=== PATIENT | female | born 1970 | race Caucasian/White ===

== ENCOUNTER 2018-03-08 08:44 | Observation (INO) ==
[2018-03-08] MEDS ORDERED: Aspirin 81 MG TAB.CHEW PO ONE (08:55)
[2018-03-08] MEDS ORDERED: 0.9 % Sodium Chloride 500 ML IVC ONE (08:55)
--- NOTE | 2018-03-08 09:09 | Emergency Department Note ---
Disposition Clinical Impression: Chest pain Pericarditis Qualifiers: Pericarditis type: unspecified type Chronicity: unspecified Qualified Code(s): I31.9 - Disease of pericardium, unspecified Disposition: Admitted As Inpatient Condition: Good Referrals: Montez Tafoya [Primary Care Provider] - Forms: ED Satisfaction Letter Time of Disposition: 11:24 Chest Pain HPI - General Chief Complaint: ED Chest Pain Stated Complaint: CP/Fever/Nausea Time Seen by Provider: 03/08/18 08:55 Source: patient Mode of arrival: ambulatory Limitations: no limitations Vital Signs Reviewed: Yes Nursing Notes Reviewed: Yes - History of Present Illness HPI Narrative: 47-year-old female with history of chronic pericarditis presents for evaluation of chest pain. Patient states symptom onsets been over the past 48 hours. States symptom onset began 2 days ago. Described as nausea vomiting and chest pain. Notes pain is localized over the left side of her chest. Pain appears to be worse with palpation and leaning forward. States this is similar to her prior flareups of her pericarditis. Patient noted a fever last night of 101 Fahrenheit. Agents also had a cough and shortness of breath. Patient states that she developed pericarditis last year after an ablation at [facility] for PVCs. States that she is typically on ibuprofen, colchicine as well as 12.5 mg of prednisone daily. States that she has been followed at the [facility] routinely for her symptoms. Patient denies any abdominal pain. Denies any history of IV drug use. Severity scale (1-10): 8 - Related Data Previous Rx's Medication Instructions Recorded Guaifenesin/Dm/Pseudoephedrine 1 each PO BID #20 tablet 09/12/16 [Capmist Dm Tablet] Nitrofurantoin (BID) [Macrobid] 100 mg PO BID #10 capsule 09/12/16 Ondansetron HCl [Zofran] 4 mg PO QID #15 tablet 09/12/16 Oseltamivir [Tamiflu] 75 mg PO BID #10 capsule 09/12/16 Phenazopyridine HCl [Pyridium] 200 mg PO TIDAC #6 tab 09/12/16 Allergies Allergy/AdvReac Type Severity Reaction Status Date / Time latex Allergy Rash Verified 03/08/18 08:48 Sulfa (Sulfonamide AdvReac Rash Verified 03/08/18 08:48 Antibiotics) All systems ED: reviewed and negative except as stated. Constitutional: Reports: fever Cardiovascular: Reports: chest pain Respiratory: Reports: cough, dyspnea. Denies: sputum production Gastrointestinal: Reports: nausea, vomiting. Denies: abdominal pain, diarrhea Chest Pain PMH - Past Medical History Medical history: Reports: cancer, other Psychiatric history: Reports: no psych history - Social History Smoking Status: Never smoker Alcohol use: Reports: none Drug use: Reports: none Physical Exam - General Limitations: no limitations General appearance: alert, in no apparent distress - Head Head exam: atraumatic, normocephalic, normal inspection - Eye Eye exam: Present: normal appearance, PERRL, EOMI - ENT ENT exam: normal exam, normal oropharynx, mucous membranes moist - Neck Neck exam: Present: normal inspection, full ROM, trachea midline - Chest Chest inspection: Present: normal inspection, symmetric chest wall rise, tenderness (reproducibile). Absent: rash - Respiratory Respiratory exam: Present: normal lung sounds bilaterally, respiratory distress - Cardiovascular Cardiovascular exam: Present: regular rate, normal rhythm - Abdominal Exam Abdominal exam: Present: soft, Non-Tender - Extremities Exam Extremities exam: Present: normal inspection. Absent: pedal edema - Back Exam Back exam: Present: normal inspection - Neurological Exam Neurological exam: Present: alert, oriented X3, CN II-XII intact - Skin Skin exam: Present: warm, dry, intact, normal color Course Course Narrative: Patient seen and examined. Patient appears uncomfortable. Patient will get the basic cardiopulmonary screening evaluation. Patient's symptoms are consistent with her pericarditis in the past. Disposition pending. - Reevaluation(s) Reevaluation #1: Patient seen and examined. Bedside ultrasound does reveal trace pericardial fluid. No signs of tamponade on. Will attempt to contact the patient's contact center director at the [facility]. Patient is agreeable for admission here. Time: 10:14 Reevaluation #2: Attempting to get in touch with Dr. Weinstein, patient's doctor at the [facility] was unsuccessful. Awaiting callback from the [facility]. Until that point the patient will be admitted to the hospital service. Time: 11:04 Reevaluation #3: Patient seen and examined. Updated on plan of care. States that her pain has improved as long as she is not moving around. Awaiting callback from [facility]. Time: 11:49 Vital Signs Temperature 97.9 F 03/08/18 08:46 Pulse Rate 61 03/08/18 08:46 Respiratory Rate 18 03/08/18 08:46 Blood Pressure 145/91 03/08/18 08:46 O2 Sat by Pulse Oximetry 100 03/08/18 08:46 Temperature 97.9 F 03/08/18 08:58 Pulse Rate 61 03/08/18 08:58 Respiratory Rate 18 03/08/18 08:58 Blood Pressure 145/91 03/08/18 08:58 O2 Sat by Pulse Oximetry 100 03/08/18 08:58 Oxygen Delivery Oxygen Delivery Room Air Chest Pain - MDM Narrative Medical decision making narrative: Patient presents for evaluation of pericarditis. Some her to her prior flareups. Patient's on fairly maximal therapy at home. Patient had a bedside ultrasound which did reveal some pericardial fluid noted to Not. It appeared to be only a minor amount of fluid. Patient would benefit from observation as an inpatient with a formal echo and resolution of symptoms. Attempted to get a hold of [facility] and physician covering the patient's care but was unsuccessful down the ED. At this point the patient shows no evidence of tap not physiology. Patient's appropriate for observation resolution of symptoms. Patient was agreeable with admission to hospitalist. Patient's symptoms are not consistent with ACS or PE. - Lab Data Lab results reviewed: Yes I reviewed the patient's lab results. Result diagrams: 03/08/18 09:12 03/08/18 09:12 Lab Results 03/08/18 03/08/18 03/08/18 Range/Units 09:12 09:12 09:12 WBC 7.8 (4.3-11.1) K/mcL RBC 4.74 (3.82-4.97) M/mcL Hgb 14.2 (11.5-15.4) g/dL Hct 42.3 (35.3-44.9) % MCV 89.2 (83.0-100.0) fL MCH 30.0 (28.0-33.3) pg MCHC 33.6 (31.6-35.5) g/dL RDW 13.1 (11.5-14.5) % Plt Count 275 (140-400) K/mcL MPV 10.0 (9.4-12.4) fL Immature Gran % 0.6 (0-4) % Seg Neutrophils % 54.5 % Lymphocytes % 33.8 % Monocytes % 8.3 % Eosinophils % 2.4 % Basophils % 0.4 % Neutrophils # 4.2 (1.6-8.9) K/mcL Lymphocytes # 2.6 (0.6-4.6) K/mcL Monocytes # 0.7 (0.0-1.3) K/mcL Eosinophils # 0.2 (0.0-0.6) K/mcL Basophils # 0.0 (0.0-0.2) K/mcL PT 11.2 (9.4-12.1) Seconds INR 1.0 APTT 36.0 (26.0-36.0) Seconds Sodium (136-145) mEq/L Potassium (3.5-5.1) mEq/L Chloride (98-107) mEq/L Carbon Dioxide (23-29) mEq/L BUN (6-20) mg/dL Creatinine (0.60-1.20) mg/dL Est GFR ( Amer) (> 60) Est GFR (Non-Af Amer) (> 60) BUN/Creatinine Ratio (6-26) Glucose (70-105) mg/dL Calculated Osmolality (280-300) Calcium (8.6-10.3) mg/dL Troponin I (< 0.04) ng/mL B-Natriuretic Peptide 141 H (Less than 100) pg/mL Urine Test (Negative) 03/08/18 03/08/18 Range/Units 09:12 11:25 WBC (4.3-11.1) K/mcL RBC (3.82-4.97) M/mcL Hgb (11.5-15.4) g/dL Hct (35.3-44.9) % MCV (83.0-100.0) fL MCH (28.0-33.3) pg MCHC (31.6-35.5) g/dL RDW (11.5-14.5) % Plt Count (140-400) K/mcL MPV (9.4-12.4) fL Immature Gran % (0-4) % Seg Neutrophils % % Lymphocytes % % Monocytes % % Eosinophils % % Basophils % % Neutrophils # (1.6-8.9) K/mcL Lymphocytes # (0.6-4.6) K/mcL Monocytes # (0.0-1.3) K/mcL Eosinophils # (0.0-0.6) K/mcL Basophils # (0.0-0.2) K/mcL PT (9.4-12.1) Seconds INR APTT (26.0-36.0) Seconds Sodium 139 (136-145) mEq/L Potassium 3.5 (3.5-5.1) mEq/L Chloride 102 (98-107) mEq/L Carbon Dioxide 29 (23-29) mEq/L BUN 13 (6-20) mg/dL Creatinine 0.81 (0.60-1.20) mg/dL Est GFR ( Amer) > 60 (> 60) Est GFR (Non-Af Amer) > 60 (> 60) BUN/Creatinine Ratio 16 (6-26) Glucose 123 H (70-105) mg/dL Calculated Osmolality 289 (280-300) Calcium 9.1 (8.6-10.3) mg/dL Troponin I < 0.03 (< 0.04) ng/mL B-Natriuretic Peptide (Less than 100) pg/mL Urine Test Negative (Negative) - Radiology Data Radiology results reviewed: Yes I reviewed the patient's radiology results. Chest X-Ray 03/08/18 08:55 IMPRESSION: 1. No acute findings in the chest. 2. Mild cardiomegaly. D/ / Rodolfo Matias MD / Rodolfo Matias MD Interpreting Provider: Rodolfo Matias MD - EKG Data EKG attestation: Yes I reviewed and interpreted this EKG. EKG shows normal: sinus rhythm Rate: normal Rhythm: NSR Bowie/QRS: normal T wave inversions noted in: aVR, v1 Interpretation: no acute changes, unchanged when compared to prior tracing (date ), nonspecific ST-T wave changes S.B.A.R. - S.B.A.R. Situation: Demographics Background: Presenting Complaint Assessment: Vital Signs, Course and respsone to treatment, Patient/Family Expectation Recommendation: Barrier(s) to disposition, Recommendation based on pending studies, treatments, or consults S.B.A.R. Report Given to: Dr. Hao Rabago Repor Time: 11:24 Attestation Statement - Attestation Attestation: I, Michael Villar DO, examined this patient [id number] and my medical decision-making was reviewed with Dr. Marco Frye, Resident Physician. I agree with the documented findings, disposition and treatment plan as described except to the extent set forth below. Please see my progress notes for details.
[2018-03-08] MEDS ORDERED: *HR* FentaNYL (PF) 100 MCG/2 ML VIAL IVP ONE (09:11)
[2018-03-08 09:26] LABS: Basophils % 0.4 %; Eosinophils # 0.2 K/mcL (0.0-0.6); Eosinophils % 2.4 %; Hematocrit 42.3 % (35.3-44.9); Hemoglobin 14.2 g/dL (11.5-15.4); Immature Granulocytes % 0.6 % (0-4); Lymphocytes # 2.6 K/mcL (0.6-4.6); Lymphocytes % 33.8 %; Mean Corpuscular HGB Conc 33.6 g/dL (31.6-35.5); Mean Corpuscular Volume 89.2 fL (83.0-100.0); Monocytes # 0.7 K/mcL (0.0-1.3); Monocytes % 8.3 %; Neutrophils # 4.2 K/mcL (1.6-8.9); Platelet Count 275 K/mcL (140-400); Red Blood Count 4.74 M/mcL (3.82-4.97); Red Cell Distribution Width 13.1 % (11.5-14.5); Segmented Neutrophils % 54.5 %
[2018-03-08 09:35] LABS: Prothrombin Time 11.2 Seconds (9.4-12.1)
[2018-03-08 09:41] LABS: Troponin I < 0.03 ng/mL (< 0.04)
[2018-03-08 09:46] LABS: BUN/Creatinine Ratio 16 (6-26); Blood Urea Nitrogen 13 mg/dL (6-20); Calcium 9.1 mg/dL (8.6-10.3); Carbon Dioxide 29 mEq/L (23-29); Chloride 102 mEq/L (98-107); Glucose 123 mg/dL (70-105); Osmolality,Calculated 289 (280-300); Potassium 3.5 mEq/L (3.5-5.1); Sodium 139 mEq/L (136-145); eGFR For Non-African Americans > 60 (> 60)
[2018-03-08] MEDS ORDERED: Ketorolac 15 MG/ML VIAL IVP ONE (09:55)
--- NOTE | 2018-03-08 10:00 | Emergency Department Note ---
Disposition Clinical Impression: Chest pain Pericarditis Qualifiers: Pericarditis type: unspecified type Chronicity: unspecified Qualified Code(s): I31.9 - Disease of pericardium, unspecified Disposition: Admitted As Inpatient Condition: Good Referrals: Montez Tafoya [Primary Care Provider] - Forms: ED Satisfaction Letter Time of Disposition: 11:33 General Adult HPI - General Chief complaint: ED Chest Pain Stated complaint: CP/Fever/Nausea Time Seen by Provider: 03/08/18 08:55 Source: patient Mode of arrival: ambulatory Limitations: no limitations - History of Present Illness Pain Scale: 8 - Related Data Previous Rx's Medication Instructions Recorded Guaifenesin/Dm/Pseudoephedrine 1 each PO BID #20 tablet 09/12/16 [Capmist Dm Tablet] Nitrofurantoin (BID) [Macrobid] 100 mg PO BID #10 capsule 09/12/16 Ondansetron HCl [Zofran] 4 mg PO QID #15 tablet 09/12/16 Oseltamivir [Tamiflu] 75 mg PO BID #10 capsule 09/12/16 Phenazopyridine HCl [Pyridium] 200 mg PO TIDAC #6 tab 09/12/16 Allergies Allergy/AdvReac Type Severity Reaction Status Date / Time latex Allergy Rash Verified 03/08/18 08:48 Sulfa (Sulfonamide AdvReac Rash Verified 03/08/18 08:48 Antibiotics) Constitutional: Reports: fever Cardiovascular: Reports: chest pain Respiratory: Reports: cough, dyspnea. Denies: sputum production Gastrointestinal: Reports: nausea, vomiting. Denies: abdominal pain, diarrhea Past Medical History - Past Medical History Medical history: Reports: cancer, other Psychiatric history: Reports: no psych history - Social History Smoking Status: Never smoker Smokeless Tobacco Status: No Alcohol use: Reports: none Drug use: Reports: none Physical Exam - General Limitations: no limitations General appearance: alert, in no apparent distress Course Vital Signs Temperature 97.9 F 03/08/18 08:46 Pulse Rate 61 03/08/18 08:46 Respiratory Rate 18 03/08/18 08:46 Blood Pressure 145/91 03/08/18 08:46 O2 Sat by Pulse Oximetry 100 03/08/18 08:46 Temperature 97.9 F 03/08/18 08:58 Pulse Rate 61 03/08/18 08:58 Respiratory Rate 18 03/08/18 08:58 Blood Pressure 145/91 03/08/18 08:58 O2 Sat by Pulse Oximetry 100 03/08/18 08:58 Oxygen Delivery Oxygen Delivery Room Air Medical Decision Making - Lab Data Result diagrams: 03/08/18 09:12 03/08/18 09:12 Lab Results 03/08/18 03/08/18 03/08/18 Range/Units 09:12 09:12 09:12 WBC 7.8 (4.3-11.1) K/mcL RBC 4.74 (3.82-4.97) M/mcL Hgb 14.2 (11.5-15.4) g/dL Hct 42.3 (35.3-44.9) % MCV 89.2 (83.0-100.0) fL MCH 30.0 (28.0-33.3) pg MCHC 33.6 (31.6-35.5) g/dL RDW 13.1 (11.5-14.5) % Plt Count 275 (140-400) K/mcL MPV 10.0 (9.4-12.4) fL Immature Gran % 0.6 (0-4) % Seg Neutrophils % 54.5 % Lymphocytes % 33.8 % Monocytes % 8.3 % Eosinophils % 2.4 % Basophils % 0.4 % Neutrophils # 4.2 (1.6-8.9) K/mcL Lymphocytes # 2.6 (0.6-4.6) K/mcL Monocytes # 0.7 (0.0-1.3) K/mcL Eosinophils # 0.2 (0.0-0.6) K/mcL Basophils # 0.0 (0.0-0.2) K/mcL PT 11.2 (9.4-12.1) Seconds INR 1.0 APTT 36.0 (26.0-36.0) Seconds Sodium (136-145) mEq/L Potassium (3.5-5.1) mEq/L Chloride (98-107) mEq/L Carbon Dioxide (23-29) mEq/L BUN (6-20) mg/dL Creatinine (0.60-1.20) mg/dL Est GFR ( Amer) (> 60) Est GFR (Non-Af Amer) (> 60) BUN/Creatinine Ratio (6-26) Glucose (70-105) mg/dL Calculated Osmolality (280-300) Calcium (8.6-10.3) mg/dL Troponin I (< 0.04) ng/mL B-Natriuretic Peptide 141 H (Less than 100) pg/mL 03/08/18 Range/Units 09:12 WBC (4.3-11.1) K/mcL RBC (3.82-4.97) M/mcL Hgb (11.5-15.4) g/dL Hct (35.3-44.9) % MCV (83.0-100.0) fL MCH (28.0-33.3) pg MCHC (31.6-35.5) g/dL RDW (11.5-14.5) % Plt Count (140-400) K/mcL MPV (9.4-12.4) fL Immature Gran % (0-4) % Seg Neutrophils % % Lymphocytes % % Monocytes % % Eosinophils % % Basophils % % Neutrophils # (1.6-8.9) K/mcL Lymphocytes # (0.6-4.6) K/mcL Monocytes # (0.0-1.3) K/mcL Eosinophils # (0.0-0.6) K/mcL Basophils # (0.0-0.2) K/mcL PT (9.4-12.1) Seconds INR APTT (26.0-36.0) Seconds Sodium 139 (136-145) mEq/L Potassium 3.5 (3.5-5.1) mEq/L Chloride 102 (98-107) mEq/L Carbon Dioxide 29 (23-29) mEq/L BUN 13 (6-20) mg/dL Creatinine 0.81 (0.60-1.20) mg/dL Est GFR ( Amer) > 60 (> 60) Est GFR (Non-Af Amer) > 60 (> 60) BUN/Creatinine Ratio 16 (6-26) Glucose 123 H (70-105) mg/dL Calculated Osmolality 289 (280-300) Calcium 9.1 (8.6-10.3) mg/dL Troponin I < 0.03 (< 0.04) ng/mL B-Natriuretic Peptide (Less than 100) pg/mL Attestation Statement - Attestation Attestation: I, Michael Aurea DO, examined this patient [id number] and my medical decision-making was reviewed with Dr. Marco Frye, Resident Physician. I agree with the documented findings, disposition and treatment plan as described except to the extent set forth below. Please see my progress notes for details. 47-year-old female presents to the emergency room with approximately 1 week worth of chest discomfort pressure tingling sensation in the left arm and extremity as well as pain in the left chest wall. Patient has a long cardiac history including a cardiac ablation had a bad outcome with perforation to the myocardium. Since then she has had chronic pericarditis and a poorly healing scar area up against a hard. She had the original procedure performed at [facility] and that is been under the care of the [facility] since then for the pericarditis. She has had had 2 pericardial windows as well as tabs to the pericardium for pericardial effusions in the past. She is denying any recent fevers chills nausea vomiting or diarrhea. Denies any specific shortness of breath. No headache or vision change. She has not had any trauma or injury. She has been on prednisone, colchicine, Motrin for a prolonged period time at this point to help with the symptoms. Patient says that this feels similar to when she had the onset of the events of the symptoms after the procedure but she just was not getting any better with the home medications that she is attempting to use. On physical exam his resting in the bed she does appear to be slightly anxious. Lungs are clear heart is regular no muffled heart sounds are noted. Abdomen is soft nontender nondistended. She does have tenderness over the left lateral chest wall but there is no crepitus deformity or injury or any complaint of a previous injury noted. Chest x-ray EKG CBC chemistry troponin and BNP will be added on at this time including a blood culture. Patient will be provided with Toradol pain medication fluids here in the disposition will be determined. Patient is accommodating to be admitted at this facility if there is nothing acutely requiring emergent intervention. We will determine this after full workup and treatment course have been established. See detailed documentation of the physical exam, medical intervention, medical decision-making and disposition in the resident physician's note. No critical care applied to the patient's treatment course at this time. 1000 Labs are unremarkable. No acute signs of elevated troponin with concern for endocarditis or myocarditis. Patient will have bedside ultrasound completed looking for fluid around the heart. Chest x-rays were compared to previous and there is an enlarged area of the pericardium but the x-ray for comparison was done prior to the procedure. Disposition will most likely be admission after evaluation has been established. 1115 Patient was discussed with the hospitalist Dr. Bui. No acute signs of endocarditis or pericarditis noted. The ultrasound did show a trace pericardial effusion no signs of topic not. Patient will be admitted for observation and symptomatic control. Patient is informed and comfortable this plan. No other issues noted this time. Patient will be observed here in the emergency room to the admission process is completed
[2018-03-08] MEDS ORDERED: Naloxone 0.4 MG/ML INJ IVP PRN (12:46)
[2018-03-08] MEDS ORDERED: D5% in Water 1,000 ML IVC PRN (13:43)
[2018-03-08] MEDS ORDERED: Dextrose Gel 15 GM/37.5 ML TUBE PO PRN ×2 (13:43)
[2018-03-08] MEDS ORDERED: *HR* Dextrose 50 % in Water (Syg) 50 ML SYRINGE IVP PRN (13:43)
[2018-03-08] MEDS ORDERED: Ketorolac 15 MG/ML VIAL IM PRN (13:43)
[2018-03-08] MEDS ORDERED: Isovue-370 500 ML INFUS..BTL IV ONE (14:14)
--- NOTE | 2018-03-08 14:24 | Internal Med History&Physical ---
Date of Encounter: 03/08/18 Time of Encounter: 14:21 Internal Medicine - H&P: HPI Chief complaint: chest pain Admitted From: Home Plans for Post Hospital Care: Home History of present illness: Ms. Coyne is a 47 year old female past medical history significant for chronic pericarditis. Patient presented to the emergency room due to 2 days history of chest pain which she describes as constant, pressure-like a 8/10 in the left side of her chest radiating to the left shoulder. Patient also has associated her chest pain with a fever to 101.0 that she has last night, nonproductive cough, nausea but denies vomiting. She reports that she has had previous similar episode of chest pain in the past the most recent one, she was found to have a pericardial effusion. Patient reports that on March 2017 she was going to undergo an ablation due to PVCs but at that time her pericardium was puncture, subsequently developing pericardial effusion. After that she has developed pericardial effusion multiple times. In June 2017, she reports having a cardiac MRI done at [facility] where she was found to have significant inflammation and was started on prednisone, which has been tapered down to 12.5 mg. She reports that she has been treated for pericarditis by Dr.Allen Weinstein at the [facility] and she is currently on Ibuprofen 600mg PO/BID, colchicine 0.6mg/PO and prednisone 12.5mg/PO daily. Past Med Surg Social Fam HX - Past Medical History Medical history: cancer, other Additional medical history: chronic pericarditis. cervical CA Psychiatric history: no psych history - Past Surgical History Additional surgical history: cardiac ablation went wrong and pierced pericardiac sac and heart. gastric sleeve. LOOP monitor - Social History Smoking Status: Never smoker Smokeless Tobacco Status: No Alcohol use: none Drug use: none Internal Medicine - H&P: Meds Alendronate Sodium [Fosamax] 70 mg PO QWEEK 03/08/18 [History] Ca/D3/Mag#11/Zinc/Dishwasher Preparer/Yan/Bor [Caltrate 600+D Plus Tablet] 1 tab PO DAILY 03/08 [History] Colchicine [Mitigare] 0.6 mg PO BID 03/08/18 [History] Ibuprofen [Ibu] 600 mg PO BID PRN 03/08/18 [History] Omeprazole [PriLOSEC] 40 mg PO DAILY 03/08/18 [History] Triamcinolone Acetonide [Nasacort] 2 spr NS DAILY 03/08/18 [History] predniSONE [PredniSONE] 2.5 mg PO DAILY 03/08/18 [History] predniSONE [PredniSONE] 10 mg PO DAILY 03/08/18 [History] 3 Allergy/AdvReac Type Severity Reaction Status Date / Time latex Allergy Rash Verified 03/08/18 12:17 Sulfa (Sulfonamide AdvReac Rash Verified 03/08/18 12:17 Antibiotics) All Systems PM: A 10-system review of systems was performed and is negative for pertinent findings except as documented above in the HPI. - Constitutional Constitutional: chills, fatigue, fever(s) (101.0 last night), weakness, no excessive sweating, no lethargy - EENT Eyes: no floaters, no pain Nose, mouth and throat: no bleeding gums - Cardiovascular Cardiovascular ROS IM: chest pain, no diaphoresis, no dyspnea on exertion, no irregular heart rhythm, no lightheadedness, no palpitations, no paroxysmal nocturnal dyspnea, no syncope - Respiratory Respiratory: cough (dry), no hemoptysis, no wheezing, no snoring, no pain on inspiration - Gastrointestinal Gastrointestinal: nausea, no abdominal pain, no excessive flatus, no hematemesis , no vomiting - Genitourinary Genitourinary: no dysuria, no flank pain - Musculoskeletal Musculoskeletal ROS IM: no arthralgias, no back pain - Integumentary Integumentary IM: no rash - Neurological Neurological ROS: no confusion, no focal weakness - Psychiatric Psychiatric: no anxiety, no difficulty concentrating - Endocrine Endocrine IM: no cold intolerance, no flushing - Constitutional Vitals: Temp Pulse Resp BP Pulse Ox 97.9 F 61 18 145/91 100 03/08/18 08:58 03/08/18 08:58 03/08/18 08:58 03/08/18 08:58 03/08/18 08:58 Exam: General: Alert and oriented 3. In no acute distress. Skin:Normal color, no rash, no lesions. HEENT: EOM, pupils equal, round and reactive. Cardiovascular: RRR, Normal S1 & S2, no rubs, murmurs or gallops. JVD about 6cm. Lungs: Clear to auscultation bilaterally, no wheezes or crackles. Abdomen: Soft, non-tender, no rigidity. NABS in all four quadrants Extremities:no edema or tenderness, no joint swelling or clubbing. Neurological:Normal cognition and motor skills. CN II-XII intact. Rest of the physical exam is non contributory Internal Med - H&P Results - Labs CBC & Chem 7: 03/08/18 09:12 03/08/18 09:12 - Assessment and plan (1) Chest pain Current Visit: Yes Status: Acute Assessment and plan: Unclear etiology. Patient has a history of pericarditis. Plan Serial troponin CTA of the chest We will restart patient on her home medication Cardiology consult 2D-echo cardiogram Telemetry monitoring EVERARDO CRP ESR Qualifiers: Chest pain type: unspecified Qualified Code(s): R07.9 - Chest pain, unspecified (2) Pericarditis Current Visit: Yes Status: Chronic Assessment and plan: Patient has a history of chronic pericarditis. Reports being treated for pericarditis since June 2017. Plan of care as problem #1 Qualifiers: Pericarditis type: unspecified type Chronicity: unspecified Qualified Code(s): I31.9 - Disease of pericardium, unspecified (3) DVT prophylaxis Current Visit: Yes Status: Acute Assessment and plan: No chemical DVT prophylaxis until pericardial effusion is r/o. Mechanical DVT prophylaxis. - Time Spent With Patient Total time spent is greater than 50% in coordination of care (as documented) at patient's floor/unit and/or counseling patient: Greater than 35 minutes
[2018-03-08] MEDS: Ibuprofen 600 MG TABLET PO SCH ×2 (15:12→20:33)
[2018-03-08] MEDS: Pantoprazole 40 MG VIAL IVP SCH (15:12)
[2018-03-08] MEDS: D5% in 0.45% NACL 1,000 ML IVC SCH (15:13)
[2018-03-08] MEDS: predniSONE 5 MG TABLET PO SCH (15:13)
[2018-03-08] MEDS ORDERED: Nitroglycerin 0.4 MG TAB.SUBL SL PRN (15:26)
[2018-03-08] MEDS: Insulin LISPRO 300 UNITS/3 ML VIAL SQ SCH (16:39)
[2018-03-08] MEDS: *HR* Morphine 2 MG/ML SYRINGE IVP PRN ×2 (17:06→23:19)
[2018-03-08 18:29] LABS: C-Reactive Protein < 5 mg/L (Less than 10)
[2018-03-08 18:31] LABS: Troponin I < 0.03 ng/mL (< 0.04)
[2018-03-08] MEDS: Colchicine 0.6 MG TABLET PO SCH (20:33)
[2018-03-09] MEDS: Insulin LISPRO 300 UNITS/3 ML VIAL SQ SCH ×4 (00:57→11:48)
[2018-03-09] MEDS: Ondansetron ODT 4 MG TAB.RAPDIS SL PRN ×3 (01:20→23:19)
[2018-03-09] MEDS: D5% in 0.45% NACL 1,000 ML IVC SCH ×2 (04:45→07:54)
[2018-03-09 06:02] LABS: Basophils % 0.3 %; Eosinophils # 0.1 K/mcL (0.0-0.6); Eosinophils % 1.1 %; Hematocrit 36.8 % (35.3-44.9); Immature Granulocytes % 0.4 % (0-4); Lymphocytes # 2.4 K/mcL (0.6-4.6); Lymphocytes % 25.8 %; Mean Corpuscular HGB Conc 34.2 g/dL (31.6-35.5); Mean Corpuscular Hemoglobin 29.4 pg (28.0-33.3); Mean Platelet Volume 9.6 fL (9.4-12.4); Monocytes # 0.7 K/mcL (0.0-1.3); Monocytes % 7.1 %; Platelet Count 231 K/mcL (140-400); Red Blood Count 4.28 M/mcL (3.82-4.97); Red Cell Distribution Width 13.1 % (11.5-14.5); Segmented Neutrophils % 65.3 %
[2018-03-09 06:11] LABS: INR 1.1; Prothrombin Time 12.3 Seconds (9.4-12.1)
[2018-03-09 06:41] LABS: Hemoglobin 12.6 g/dL (11.5-15.4)
[2018-03-09 06:59] LABS: BUN/Creatinine Ratio 23 (6-26); Blood Urea Nitrogen 15 mg/dL (6-20); Carbon Dioxide 25 mEq/L (23-29); Chloride 106 mEq/L (98-107); Glucose 107 mg/dL (70-105); Magnesium 1.9 mg/dL (1.6-2.6); Osmolality,Calculated 287 (280-300); Phosphorous 3.4 mg/dL (2.7-4.5); Potassium 3.8 mEq/L (3.5-5.1); Sodium 138 mEq/L (136-145); eGFR For Non-African Americans > 60 (> 60)
[2018-03-09] MEDS: predniSONE 5 MG TABLET PO SCH (07:51)
[2018-03-09] MEDS: Ibuprofen 600 MG TABLET PO SCH (07:51)
[2018-03-09] MEDS: Colchicine 0.6 MG TABLET PO SCH ×2 (07:53→21:48)
[2018-03-09] MEDS: Pantoprazole 40 MG VIAL IVP SCH (07:53)
[2018-03-09 08:24] LABS: Calcium 8.8 mg/dL (8.6-10.3)
[2018-03-09] MEDS: *HR* OxyCODONE Immed Rel 5 MG TABLET PO PRN ×2 (09:02→23:18)
--- NOTE | 2018-03-09 09:40 | Cardiology Consult Note ---
<Ventura Fernandez - Last Filed: 03/09/18 09:35> Date of Encounter: 03/09/18 Time of Encounter: 09:35 Assessment and Plan (1) Chest pain Current Visit: Yes Status: Chronic Presents with chest pain, has been chronic for months, but worsened in recent days. Troponins negative. Known hx of recurrent pericardial effusions and pericarditis, follows at [facility] with Dr. Doimnic Weinstein. Reports negative stress test in the recent past. Symptoms atypical of ischemic cause. Reports she has been on Colchicine 0.6mg BID, Ibuprofen 600mg and steroid taper- -currently 12.5mg daily since June. Reports cardiac MRI 11/2017 at [facility] showed continued inflammation. EKG no findings of pericarditis. TTE EF preserved, no pericardial effusion noted. Chest pain is worse when lying flat, tenderness noted on palpation. Will discuss with Dr. Resendiz to determine if any medication changes are warranted to help with pain control. Do not anticipate any further inpt cardiac testing. Qualifiers: Chest pain type: unspecified Qualified Code(s): R07.9 - Chest pain, unspecified Discussion w patient/family: The assessment and plan as outlined above was discussed with the patient and/or family members who expressed understanding and agreement. All questions were answered. Thank you for involving us in the care of your patient. Please call with any questions. I will discuss all the above with Dr. Resendiz and make changes as necessary. History of Present Illness Consult date: 03/09/18 Consult reason: pericarditis Chief complaint: chest pain History of present illness: Ms. Coyne is a 47 year old female with PMH significant for PVCs, pericarditis, pericardial effusion. Patient presented to the ED for 2 days history of chest pain which she describes as constant, pressure-like a 8/10 in the left side of her chest and into the back of her shoulders. Patient reports she developed a fever of 101.0 the night prior, nonproductive cough, nausea but denies vomiting. She reports that she has had chronic chest pain for months, but it started worsening and she was concerned she had another pericardial effusion, prompting evaluation. Pt reports March 2017 she was going to undergo an ablation due to PVCs but at that time her pericardium was punctured, subsequently developing a pericardial effusion requiring pericardiocentesis. After that she has developed pericardial effusion multiple times. In June 2017, she began treatment for pericarditis on prednisone, which has been tapered down to 12.5 mg, Ibuprofen 600mg BID, colchicine 0.6mg BID. Per pt, she had a cardiac MRI 11/2017 at [facility] that showed continued inflammation. Follows with Dr. Dominic Weinstein at [facility]. Reports having stress test prior to all of this testing last year. Cardiology consulted for further recs. TTE resulted--LVEF 65% . Normal LV chamber size, wall thickness and function. Normal right ventricular structure and function. No significant valvular dysfunction. Unable to estimate RVSP due to lack of TR jet. CTA negative for PE, mild cardiomegaly. Patchy mosaic attenuation which may be related to small airways disease. No focal consolidation or other acute cardiopulmonary process. Past Med Surg Social Fam HX - Past Medical History Medical history: cancer, other Additional medical history: chronic pericarditis. cervical CA Psychiatric history: no psych history - Past Surgical History Additional surgical history: cardiac ablation went wrong and pierced pericardiac sac and heart. gastric sleeve. LOOP monitor - Social History Smoking Status: Never smoker Smokeless Tobacco Status: No Alcohol use: none Drug use: none Medications and Allergies Alendronate Sodium [Fosamax] 70 mg PO QWEEK 03/08/18 [History] Ca/D3/Mag#11/Zinc/[employer]/Yan/Bor [Caltrate 600+D Plus Tablet] 1 tab PO DAILY 03/08 [History] Colchicine [Mitigare] 0.6 mg PO BID 03/08/18 [History] Ibuprofen [Ibu] 600 mg PO BID PRN 03/08/18 [History] Omeprazole [PriLOSEC] 40 mg PO DAILY 03/08/18 [History] Triamcinolone Acetonide [Nasacort] 2 spr NS DAILY 03/08/18 [History] predniSONE [PredniSONE] 2.5 mg PO DAILY 03/08/18 [History] predniSONE [PredniSONE] 10 mg PO DAILY 03/08/18 [History] 3 Allergy/AdvReac Type Severity Reaction Status Date / Time latex Allergy Rash Verified 03/08/18 12:17 Sulfa (Sulfonamide AdvReac Rash Verified 03/08/18 12:17 Antibiotics) All Systems Review: The remainder of the systems were reviewed and are negative - Cardiovascular Cardiovascular: as per HPI, chest pain at rest, chest pain with exertion, radiating jaw, neck or arm pain - Respiratory Respiratory: cough Physical Examination Vital Signs, Last 4 Hours Temp Pulse Resp BP Pulse Ox 03/09/18 07:08 98.0 F 52 19 149/87 98 Vital Signs Temp Pulse Resp BP Pulse Ox 03/09/18 07:08 98.0 F 52 19 149/87 98 03/09/18 03:59 97.5 F L 54 16 110/71 98 03/08/18 23:49 97.9 F 54 16 118/78 94 03/08/18 21:06 96 03/08/18 19:18 98.4 F 59 16 128/84 96 03/08/18 15:54 98.4 F 75 18 123/76 97 03/08/18 14:22 18 143/73 Intake and Output 03/08/18 03/09/18 03/09/18 23:59 07:59 15:59 Intake Total 1000 / 1000 Output Total 1600 / 1600 Balance -600 / -600 Intake: IV Fluids 1000 / 1000 D5% And 0.45% Nacl 1000 Ml Bag 1000 / 1000 1,000 ML @ 75 mls/hr IVC . [id number] [facility] Rx#:[id number] Output: Urine 1600 / 1600 Other: Weight 98.6 kg Blood Glucose* 99 113 General: Conversant, No Apparent Distress HEENT: Atraumatic, Normocephaly, Mucus Membranes Moist Neck: No JVD, Normal carotid pulses Cardiac: Reg Rate and Rhythm, Normal S1 and S2, No Murmur Lungs: Normal Breath Sounds, No Wheeze, Rales, Rhonchi Neuro: Alert and responsive, No focal deficits noted Abdomen: Soft, Non-Tender Skin: No rashes noted on visualized skin Musculoskeletal: Other (chest tenderness on palpation) Extremities: No Clubbing, No Cyanosis, No Edema, Normal Pulses Results 03/09/18 05:48 03/09/18 05:48 Lab Results 03/08/18 03/09/18 03/09/18 17:36 05:48 05:48 WBC 9.3 Hgb 12.6 D Hct 36.8 Plt Count 231 INR 1.1 Sodium Potassium Chloride Carbon Dioxide BUN Creatinine Glucose Calcium Magnesium Troponin I < 0.03 03/09/18 05:48 WBC Hgb Hct Plt Count INR Sodium 138 Potassium 3.8 Chloride 106 Carbon Dioxide 25 BUN 15 Creatinine 0.65 Glucose 107 H Calcium 8.8 Magnesium 1.9 Troponin I Short CBC 03/09/18 Range/Units 05:48 WBC 9.3 (4.3-11.1) K/mcL Hgb 12.6 D (11.5-15.4) g/dL Hct 36.8 (35.3-44.9) % Plt Count 231 (140-400) K/mcL Neutrophils # 6.0 (1.6-8.9) K/mcL BMP 03/09/18 03/08/18 Range/Units 05:48 09:12 Sodium 138 139 (136-145) mEq/L Potassium 3.8 3.5 (3.5-5.1) mEq/L Chloride 106 102 (98-107) mEq/L Carbon Dioxide 25 29 (23-29) mEq/L BUN 15 13 (6-20) mg/dL Creatinine 0.65 0.81 (0.60-1.20) mg/dL Glucose 107 H 123 H (70-105) mg/dL Calcium 8.8 9.1 (8.6-10.3) mg/dL Cardiac Enzymes 03/08/18 Range/Units 17:36 Troponin I < 0.03 (< 0.04) ng/mL Impressions Chest CTA 03/08/18 14:14 IMPRESSION: No pulmonary embolism. Patchy mosaic attenuation which may be related to small airways disease. No focal consolidation or other acute cardiopulmonary process. Mild cardiomegaly. No pericardial effusion, thickening, or calcification is identified. D/ / Reagan Bob MD / Reagan Bob MD Interpreting Provider: Reagan Bob MD Echocardiogram 03/08/18 15:38 Impressions: LVEF 65%. Normal LV chamber size, wall thickness and function. Normal right ventricular structure and function. No significant valvular dysfunction. Unable to estimate RVSP due to lack of TR jet. Left Ventricular Wall Motion: Rest Echo Findings All wall segments showed normal motion. Findings: Study Quality * Technically adequate exam. ECG Findings * Normal sinus rhythm. Left Ventricle * Normal LV chamber size, wall thickness and function. * Normal left ventricular diastolic function. * LVEF 65%. Right Ventricle * Normal right ventricular structure and function. Left Atrium * Normal left atrial size. Right Atrium * Normal right atrial size. Interatrial Septum * Interatrial septum not well evaluated. Aortic Valve * Trileaflet aortic valve with normal function. * No aortic regurgitation. * No aortic stenosis. Mitral Valve * Normal mitral valve structure and function. * No mitral regurgitation. Tricuspid Valve * Normal tricuspid valve structure and function. * Unable to estimate RVSP due to lack of TR jet. * No tricuspid regurgitation. Pulmonic Valve * Normal pulmonic valve structure and function. * No pulmonic regurgitation. Aorta * Normally sized aortic root. Pericardium * The pericardium appears normal. IVC * The IVC is not well evaluated. Active Medications Colchicine (Colcrys) 0.6 mg PO BID [facility] Stop: 09/07/18 21:01 Last Admin: 03/09/18 07:53 Dose: 0.6 mg Dextrose/Water (Dextrose 50% (Syg)) 25 ml IVP AD PRN PRN Reason: Hypoglycemia Stop: 09/07/18 13:44 Glucagon (Glucagen) 1 mg IM ONCE PRN PRN Reason: Hypoglycemia Stop: 09/07/18 13:44 Glucose (Gluctose) 15 gm PO ONCE PRN PRN Reason: Hypoglycemia Stop: 09/07/18 13:44 Glucose (Gluctose) 30 gm PO ONCE PRN PRN Reason: Hypoglycemia Stop: 09/07/18 13:44 Dextrose/Sodium Chloride (D5% And 0.45% Nacl 1000 Ml Bag) 1,000 mls @ 75 mls/ hr IVC .[id number] [facility] Stop: 09/07/18 13:46 Last Admin: 03/09/18 07:54 Dose: Not Given Dextrose (Dextrose 5%) 1,000 mls @ 100 mls/hr IVC .Q10H PRN PRN Reason: HYPOGLYCEMIA Stop: 09/07/18 13:44 Ibuprofen (Motrin) 600 mg PO TID [facility] PRN Reason: Protocol Stop: 09/07/18 15:01 Last Admin: 03/09/18 07:51 Dose: 600 mg Insulin Human Lispro (Humalog) 0 units SQ HS [facility] PRN Reason: Protocol Stop: 09/08/18 21:01 Insulin Human Lispro (Humalog) 0 units SQ TIDAC [facility] PRN Reason: Protocol Stop: 09/08/18 08:16 Last Admin: 03/09/18 09:03 Dose: Not Given Naloxone HCl (Narcan) 0.4 mg IVP Q2MIN PRN PRN Reason: SEE COMMENTS Stop: 09/07/18 12:47 Nitroglycerin (Nitroglycerin) 0.4 mg SL Q5MIN PRN PRN Reason: Chest Pain Stop: 09/07/18 15:27 Last Admin: 03/08/18 16:00 Dose: 0.4 mg Omeprazole (Prilosec) 40 mg PO DAILY@0730 [facility] PRN Reason: Protocol Stop: 09/09/18 07:31 Ondansetron HCl (Zofran Odt) 4 mg SL Q6HR PRN PRN Reason: Nausea And Vomiting Stop: 09/08/18 01:12 Last Admin: 03/09/18 01:20 Dose: 4 mg Oxycodone HCl (Roxicodone) 5 mg PO Q4HR PRN; Protocol PRN Reason: Pain Stop: 09/08/18 08:07 Last Admin: 03/09/18 09:02 Dose: 5 mg Prednisone (Prednisone) 12.5 mg PO DAILY [facility] Stop: 09/07/18 14:31 Last Admin: 03/09/18 07:51 Dose: 12.5 mg - Imaging and Cardiology Echo: report reviewed - EKG Interpretation EKG results cardiology: personally reviewed Consult Discharge Plan - Plan Referrals: Montez Tafoya [Primary Care Provider] - < A - Last Filed: 03/09/18 17:08> Date of Encounter: 03/09/18 - Attending Attestation I have personally performed a face to face evaluation on this patient. I have reviewed and agree with the care plan. History and Exam by me shows: 47 y/o F with chronic pericarditis being followed at [facility]. Echo done here shows no pericardial effusion. Increase Ibuprofen to 800mg tid. Continue Cochicine 0.6mg bid. Please obtain CMR report from [facility] Assessment and Plan Discussion w patient/family: The assessment and plan as outlined above was discussed with the patient and/or family members who expressed understanding and agreement. All questions were answered. Thank you for involving us in the care of your patient. Please call with any questions. History of Present Illness History of present illness: Ms. Coyne is a 47 year old female All Systems Review: The remainder of the systems were reviewed and are negative Physical Examination Vital Signs, Last 4 Hours Temp Pulse Resp BP Pulse Ox 03/09/18 16:06 98.1 F 83 18 113/74 95 Results 03/09/18 05:48 03/09/18 05:48 Lab Results 03/08/18 03/09/18 03/09/18 17:36 05:48 05:48 WBC 9.3 Hgb 12.6 D Hct 36.8 Plt Count 231 INR 1.1 Sodium Potassium Chloride Carbon Dioxide BUN Creatinine Glucose Calcium Magnesium Troponin I < 0.03 03/09/18 05:48 WBC Hgb Hct Plt Count INR Sodium 138 Potassium 3.8 Chloride 106 Carbon Dioxide 25 BUN 15 Creatinine 0.65 Glucose 107 H Calcium 8.8 Magnesium 1.9 Troponin I
--- NOTE | 2018-03-09 15:39 | Internal Med Progress Note ---
Hospitalist Progress Note - Encounter Date of Encounter: 03/09/18 Time of Encounter: 15:35 - Subjective Interval History: Patient seen and evaluated at bedside today. Still reports having some pressure -like substernal chest pain. Which is slightly better than yesterday. Denies shortness of breath, nausea or vomiting. - Exam Vitals: Temp Pulse Resp BP Pulse Ox 98.5 F 58 19 123/80 96 03/09/18 11:00 03/09/18 11:00 03/09/18 11:00 03/09/18 11:00 03/09/18 11:00 Exam: General: Alert and oriented 3. In no acute distress. Cardiovascular: RRR, Normal S1 & S2, no rubs, murmurs or gallops. JVD about 6cm. Lungs: Clear to auscultation bilaterally, no wheezes or crackles. Abdomen: Soft, non-tender, no rigidity. NABS in all four quadrants Extremities: no edema or tenderness. Neurological: CN II-XII intact. Rest of the physical exam is non contributory - Assessment and Plan (1) Chest pain Current Visit: Yes Status: Chronic Assessment and Plan: Atypical chest pain. Plan Patient on nitroglycerin We will continue to follow cardiology recommendation. (2) Pericarditis Current Visit: Yes Status: Chronic Assessment and Plan: Patient has a history of chronic pericarditis. And has been treated with colchicine, ibuprofen, and prednisone. Since June this year. Plan will continue home medication. Will discuss with cardiology whether patient needs some adjustment in her home medication. (3) DVT prophylaxis Current Visit: Yes Status: Acute Assessment and Plan: We will start patient o 5000 units subcutaneous every 12 hours for DVT prophylaxis as there is not signs of pericardial effusion on CT or 2-D echo. - Summary of Assessment and Plan Summary of Assessment and Plan: Potential discharge tomorrow. - Time Spent with Patient Total time spent is greater than 50% in coordination of care (as documented) at patient's floor/unit and/or counseling patient: Greater than 35 minutes Plan of Care Discussed with: patient (the family and nurse.) Internal Medicine: Result - Labs CBC & Chem 7: 03/09/18 05:48 03/09/18 05:48 Labs: Short CBC 03/09/18 Range/Units 05:48 WBC 9.3 (4.3-11.1) K/mcL Hgb 12.6 D (11.5-15.4) g/dL Hct 36.8 (35.3-44.9) % Plt Count 231 (140-400) K/mcL Neutrophils # 6.0 (1.6-8.9) K/mcL BMP 03/09/18 05:48 Sodium 138 Potassium 3.8 Chloride 106 Carbon Dioxide 25 BUN 15 Creatinine 0.65 Glucose 107 H Calcium 8.8 Cardiac Enzymes 03/08/18 Range/Units 17:36 Troponin I < 0.03 (< 0.04) ng/mL - ABG Interpretation ABG results: PT/INR, D-dimer PT 12.3 Seconds (9.4-12.1) H 03/09/18 05:48 - Impressions Impressions Echocardiogram 03/08/18 15:38 Impressions: LVEF 65%. Normal LV chamber size, wall thickness and function. Normal right ventricular structure and function. No significant valvular dysfunction. Unable to estimate RVSP due to lack of TR jet. Left Ventricular Wall Motion: Rest Echo Findings All wall segments showed normal motion. Findings: Study Quality * Technically adequate exam. ECG Findings * Normal sinus rhythm. Left Ventricle * Normal LV chamber size, wall thickness and function. * Normal left ventricular diastolic function. * LVEF 65%. Right Ventricle * Normal right ventricular structure and function. Left Atrium * Normal left atrial size. Right Atrium * Normal right atrial size. Interatrial Septum * Interatrial septum not well evaluated. Aortic Valve * Trileaflet aortic valve with normal function. * No aortic regurgitation. * No aortic stenosis. Mitral Valve * Normal mitral valve structure and function. * No mitral regurgitation. Tricuspid Valve * Normal tricuspid valve structure and function. * Unable to estimate RVSP due to lack of TR jet. * No tricuspid regurgitation. Pulmonic Valve * Normal pulmonic valve structure and function. * No pulmonic regurgitation. Aorta * Normally sized aortic root. Pericardium * The pericardium appears normal. IVC * The IVC is not well evaluated. Consult Discharge Plan - Plan Referrals: Montez Tafoya [Primary Care Provider] - (1) Chest pain Qualifiers: Chest pain type: unspecified Qualified Code(s): R07.9 - Chest pain, unspecified (2) Pericarditis Qualifiers: Pericarditis type: unspecified type Chronicity: unspecified Qualified Code(s ): I31.9 - Disease of pericardium, unspecified
[2018-03-09] MEDS: *HR* Heparin 5,000 UNIT/ML VIAL SQ SCH (16:49)
[2018-03-09] MEDS: Ibuprofen 800 MG TABLET PO SCH ×2 (16:49→21:49)
[2018-03-09] MEDS ORDERED: Insulin LISPRO 300 UNITS/3 ML VIAL SQ SCH (21:00)
[2018-03-10 08:08] VITALS: BP 116/74
--- NOTE | 2018-03-10 10:38 | Cardiology Progress Note ---
Date of Encounter: 03/10/18 Time of Encounter: 10:35 Assessment and Plan (1) Chest pain Current Visit: Yes Status: Chronic Presented with chest pain, chronic for months, but worsened in recent days. Troponins negative. Known hx of recurrent pericardial effusions and pericarditis, follows at [place] with Dr. Dominic Weinstein. Reports negative stress test in the recent past. Symptoms atypical of ischemic cause. Home meds were Colchicine 0.6mg BID, Ibuprofen 600mg TID and steroid taper-- 12.5mg daily since June. EKG no findings of pericarditis. TTE EF preserved, no pericardial effusion noted. Increased Ibuprofen to 800mg TID yesterday. Pt reports pain has improved. Current CP 4/10, which is near her previous baseline. Records were requested, not yet received. Given pain is back to her baseline, continue current regimen with increased Ibuprofen and follow-up with [place] as already planned next week. Cardiology signing off. Reconsult PRN. Qualifiers: Chest pain type: unspecified Qualified Code(s): R07.9 - Chest pain, unspecified Discussion w patient/family: The assessment and plan as outlined above was discussed with the patient and/or family members who expressed understanding and agreement. All questions were answered. Thank you for involving us in the care of your patient. Please call with any questions. I will discuss all the above with Dr. Resendiz and make changes as necessary. Subjective Principal diagnosis: CP Interval history: Ibuprofen increased yesterday to 800mg TID. Pt reports improvement in CP, currently 4/10 which is near her previous baseline. Objective Vital Signs, Last 4 Hours Temp Pulse Resp BP Pulse Ox 03/10/18 08:07 98.0 F 65 18 116/74 97 Vital Signs Temp Pulse Resp BP Pulse Ox 03/10/18 08:07 98.0 F 65 18 116/74 97 03/10/18 04:44 98.2 F 50 16 143/83 98 03/10/18 01:53 97.7 F 57 16 117/76 98 03/09/18 21:38 98.6 F 54 16 118/79 96 03/09/18 16:06 98.1 F 83 18 113/74 95 03/09/18 11:00 98.5 F 58 19 123/80 96 Intake and Output 03/09/18 03/10/1803/10/18 23:59 07:59 15:59 Other: # Voids 1 General: Conversant, No Apparent Distress HEENT: Atraumatic, Normocephaly, Mucus Membranes Moist Neck: No JVD, Normal carotid pulses Cardiac: Reg Rate and Rhythm, Normal S1 and S2, No Murmur Lungs: Normal Breath Sounds, No Wheeze, Rales, Rhonchi Neuro: Alert and responsive, No focal deficits noted Abdomen: Soft, Non-Tender Skin: No rashes noted on visualized skin Musculoskeletal: Other (chest tenderness on palpation) Extremities: No Clubbing, No Cyanosis, No Edema, Normal Pulses Results 03/09/18 05:48 03/09/18 05:48 Active Medications Colchicine (Colcrys) 0.6 mg PO BID [facility] Stop: 09/07/18 21:01 Last Admin: 03/09/18 21:48 Dose: 0.6 mg Dextrose/Water (Dextrose 50% (Syg)) 25 ml IVP AD PRN PRN Reason: Hypoglycemia Stop: 09/07/18 13:44 Glucagon (Glucagen) 1 mg IM ONCE PRN PRN Reason: Hypoglycemia Stop: 09/07/18 13:44 Glucose (Gluctose) 15 gm PO ONCE PRN PRN Reason: Hypoglycemia Stop: 09/07/18 13:44 Glucose (Gluctose) 30 gm PO ONCE PRN PRN Reason: Hypoglycemia Stop: 09/07/18 13:44 Heparin Sodium (Porcine) (Heparin) 5,000 unit SQ Q12HCO [facility] Stop: 09/08/18 18:01 Last Admin: 03/09/18 16:49 Dose: 5,000 unit Dextrose (Dextrose 5%) 1,000 mls @ 100 mls/hr IVC .Q10H PRN PRN Reason: HYPOGLYCEMIA Stop: 09/07/18 13:44 Ibuprofen (Motrin) 800 mg PO TID [facility] PRN Reason: Protocol Stop: 09/08/18 15:01 Last Admin: 03/09/18 21:49 Dose: 800 mg Naloxone HCl (Narcan) 0.4 mg IVP Q2MIN PRN PRN Reason: SEE COMMENTS Stop: 09/07/18 12:47 Nitroglycerin (Nitroglycerin) 0.4 mg SL Q5MIN PRN PRN Reason: Chest Pain Stop: 09/07/18 15:27 Last Admin: 03/08/18 16:00 Dose: 0.4 mg Omeprazole (Prilosec) 40 mg PO DAILY@0730 [facility] PRN Reason: Protocol Stop: 09/09/18 07:31 Ondansetron HCl (Zofran Odt) 4 mg SL Q6HR PRN PRN Reason: Nausea And Vomiting Stop: 09/08/18 01:12 Last Admin: 03/09/18 23:19 Dose: 4 mg Oxycodone HCl (Roxicodone) 5 mg PO Q4HR PRN; Protocol PRN Reason: Pain Stop: 09/08/18 08:07 Last Admin: 03/09/18 23:18 Dose: 5 mg Prednisone (Prednisone) 12.5 mg PO DAILY [facility] Stop: 09/07/18 14:31 Last Admin: 03/09/18 07:51 Dose: 12.5 mg - Imaging and Cardiology Echo: report reviewed - EKG Interpretation EKG results cardiology: other (12 hr tele AVG HR 59, SR, no significant pauses or arrhythmias noted) Consult Discharge Plan - Plan Referrals: Montez Tafoya [Primary Care Provider] -
--- NOTE | 2018-03-10 10:44 | Discharge Summary ---
- NOTES TO OUTPATIENT PROVIDER Notes to Outpatient Provider: Follow-up with your cardiology at [facility]. Orders not resulted at time of discharge: Pending orders 03/08/18 17:36 EVERARDO Titer by I[facility] Routine Date of Encounter: 03/10/18 Time of Encounter: 10:38 - Discharge Diagnosis (1) Chest pain Priority: Primary Status: Chronic Qualifiers: Qualified Code(s): R07.9 - Chest pain, unspecified (2) Pericarditis Priority: Secondary Status: Chronic Qualifiers: Qualified Code(s): I31.9 - Disease of pericardium, unspecified (3) DVT prophylaxis Priority: Secondary Status: Acute Hospital course: Ms. Coyne is a 47 year old female past medical history significant for chronic pericarditis. Patient presented to the emergency room complaining of 2 days history of chest pain which she describes as constant, pressure-like a 8/10 in the left side of her chest radiating to the left shoulder. Patient also has associated her chest pain with a fever to 101.0. Patient workup for possible pericarditis, workup can back negative. CTA of the chest and 2-D echo done showed no pericardial effusion. Cardiology consulted and recommended to continue patient home medication, and increase ibuprofen to 800 three times a day. Patient acute symptoms resolved. Patient is clinically is stable to be discharged home. - Time Spent with Patient Total time spent providing and/or coordinating discharge services: Greater than 30 minutes - Discharge Medications Prescriptions: Ondansetron ODT [Zofran ODT] 4 mg SL Q6HR PRN 30 Days #30 tab.rapdis PRN Reason: Nausea And Vomiting Ibuprofen [Motrin] 800 mg PO TID 30 Days #90 tablet Home Medications: Alendronate Sodium [Fosamax] 70 mg PO QWEEK 03/08/18 [History] Ca/D3/Mag#11/Zinc/Application Counselor/Yan/Bor [Caltrate 600+D Plus Tablet] 1 tab PO DAILY 03/08 [History] Colchicine [Mitigare] 0.6 mg PO BID 03/08/18 [History] Omeprazole [PriLOSEC] 40 mg PO DAILY 03/08/18 [History] Triamcinolone Acetonide [Nasacort] 2 spr NS DAILY 03/08/18 [History] predniSONE [PredniSONE] 2.5 mg PO DAILY 03/08/18 [History] predniSONE [PredniSONE] 10 mg PO DAILY 03/08/18 [History] Ibuprofen [Motrin] 800 mg PO TID 30 Days #90 tablet 03/10/18 [Rx] Ondansetron ODT [Zofran ODT] 4 mg SL Q6HR PRN 30 Days #30 tab.rapdis 03/10/18 [ Rx] Allergies/Adverse Reactions: 3 Allergy/AdvReac Type Severity Reaction Status Date / Time latex Allergy Rash Verified 03/08/18 12:17 Sulfa (Sulfonamide AdvReac Rash Verified 03/08/18 12:17 Antibiotics) Date of admission: 03/08/18 13:17 Primary care physician: Montez Tafoya Consults: 03/08/18 14:19 Consult to Cardiology [CONS] Routine Comment: Consulting Provider: [facility] [place] Reason for Consult: Chest pain. Patient being treated for chronic pericarditis. By Dr. Thierry Weinstein at [facility]. Call Completed: No - Constitutional Vitals: Temp Pulse Resp BP Pulse Ox 98.0 F 65 18 116/74 97 03/10/18 08:07 03/10/18 08:07 03/10/18 08:07 03/10/18 08:07 03/10/18 08:07 Exam: General: Alert and oriented 3. In no acute distress. Cardiovascular: RRR, Normal S1 & S2, no rubs, murmurs or gallops. JVD about 6cm. Lungs: Clear to auscultation bilaterally, no wheezes or crackles. Abdomen: Soft, non-tender, no rigidity. NABS in all four quadrants Extremities: no edema or tenderness. Neurological: CN II-XII intact. Rest of the physical exam is non contributory - Patient Status Disposition: Home, Self-Care Condition: Good Functional capacity at discharge: independent ambulation Overall status at discharge: patient is back to baseline - Discharge Instructions Follow Up With: Montez Tafoya [Primary Care Provider] - - Diet and Activity Activity: resume usual activities as tolerated Diet: advance to your usual diet
[2018-03-10] MEDS: predniSONE 5 MG TABLET PO SCH (11:21)
[2018-03-10] MEDS: Ibuprofen 800 MG TABLET PO SCH (11:22)
[2018-03-10] MEDS: *HR* Heparin 5,000 UNIT/ML VIAL SQ SCH (11:23)
[2018-03-10] MEDS: Colchicine 0.6 MG TABLET PO SCH (11:24)
--- NOTE | 2018-03-10 18:16 | Electrocardiograph Report ---
[place] [id number] Test Date: 2018-03-08 Pat Name: Diann Coyne Department: [id number] Room: 2A Gender: F Web Applications Programmer: : [id number] Requested By: Sy Durbin Order Number: [id number] Reading MD: Iris Craig Measurements Intervals [place] Rate: 55 P: -4 IL: 171 QRS: -25 QRSD: 94 T: 3 QT: 455 QTc: 436 Interpretive Statements Sinus bradycardia Borderline left axis deviation Electronically Signed On 03-10-2018 18:14:56 EDT by Iris Craig
== END 2018-03-10 12:35 | disposition home or self-care (01) ==
LOC: EMEROOARM 08:44 → 2ANU 08:44
PROVIDERS: ADMIT Internal Medicine; ATTEND Internal Medicine